=== PATIENT | male | born 1985 | race Caucasian/White ===

== ENCOUNTER 2019-07-25 11:12 | Emergency (ER) | payer SELFPAY ==
[~2019-07-25] VITALS: Ht 185.4 cm; Wt 100.7 kg
[2019-07-25 11:18] VITALS: Ht 185.4 cm; Wt 100.7 kg
[2019-07-25 15:13] VITALS: BP 141/72
== END 2019-07-25 15:13 | disposition home or self-care (01) ==
LOC: ED 11:12
DX: S42.92XA Fracture of left shoulder girdle, part unspecified, initial encounter for closed fracture (principal); V00.131A Fall from skateboard, initial encounter; Y93.51 Activity, roller skating (inline) and skateboarding; Y92.89 Other specified places as the place of occurrence of the external cause
CPT/HCPCS: J1885; J3010; Q0092